=== PATIENT | female | born 1965 | race Caucasian/White ===

== ENCOUNTER 2017-08-01 11:40 | Day surgery (SDC) | payer OTHER ==
[~2017-08-01] VITALS: Ht 175.3 cm; Wt 100.2 kg
[~2017-08-01 11:40] MED LIST: BUPR150ER PO; CALCA400CH; CALCITRATE200 MG; LARIN FE 1-201 EACH PO; Multiple Vitam1 EACH PO; SERT25 PO
== END 2017-08-01 14:05 | disposition home or self-care (01) ==
LOC: ORSCSDS 11:40
PROVIDERS: Surgery
PROC: 0DJD8ZZ Inspection of Lower Intestinal Tract, Via Natural or Artificial Opening Endoscopic (ICD-10-PCS; principal; 2017-08-01 13:30)
DX: Z12.11 Encounter for screening for malignant neoplasm of colon (principal); E78.5 Hyperlipidemia, unspecified; F32.9 Major depressive disorder, single episode, unspecified; Z79.899 Other long term (current) drug therapy
CPT/HCPCS: J0330; J1980; J2405; J7120

== ENCOUNTER → 2020-02-26 | Outpatient (CLI) | payer OTHER ==
[~2020-02-26] MED LIST changes: +Calcium Acetat667 MG; +Multivitamin1 EAC1 PO
[2020-02-28 16:11] LABS: HPV 16 Negative (Negative); HPV 18 Negative (Negative); HPV OTHER HR TYPES Negative (Negative)
== END ==
LOC: LAB 18:55 → LAB SHORT 18:55
PROVIDERS: Obstetrics & Gynecology
DX: Z01.419 Encounter for gynecological examination (general) (routine) without abnormal findings (principal)
CPT/HCPCS: 87624; G0123

== ENCOUNTER 2021-08-26 08:43 | Day surgery (SDC) | payer OTHER | END 2021-08-27 23:09 | disposition home or self-care (01) | LOC: MOI MAM 08:43 | DX: D24.2 Benign neoplasm of left breast (principal); N60.32 Fibrosclerosis of left breast | CPT/HCPCS: 19081; 88305; A4648 ==

== ENCOUNTER 2022-10-04 08:22 | Day surgery (SDC) | payer OTHER | END 2022-10-11 22:54 | disposition home or self-care (01) | LOC: MOI MAM 08:22 | DX: R92.1 Mammographic calcification found on diagnostic imaging of breast (principal); D24.2 Benign neoplasm of left breast ==

== ENCOUNTER 2022-10-05 09:39 | Day surgery (SDC) | payer OTHER ==
[~2022-10-05] VITALS: Ht 177.8 cm; Wt 113.6 kg
[2022-10-05] VITALS (10 sets, daily range): BP systolic 132–151; BP diastolic 68–93
[~2022-10-05 09:39] MED LIST changes: +IBUP200 PO
[2022-10-05] MEDS ORDERED: OMEP20ER PO (10:51)
--- NOTE | 2022-10-05 11:11 | NUR ---
Ambulatory in Day Surgery History, Chart, Medications and Allergies reviewed before start of procedure. Pre-Op teaching done. Pt verbalizes understanding. Patient States Post-Procedure ride home has been arranged.
--- NOTE | 2022-10-05 13:29 | NUR ---
REPORT RECIEVED. PT SITTING UP IN BED TOLERING PO FLUIDS. REPORTS PAIN 2/10 AND A HEADACE. VSS ON ROOM AIR. TOLERING PO FLUDIS
--- NOTE | 2022-10-05 13:54 | NUR ---
PT DECLINES NARCOTIC PAIN MEDICATION. DR LUCIO CONSULTED FOR ALTERNATIVE PAIN MED AT THIS TIME, AT BED SIDE. FAMILY AT BEDSIDE.
--- NOTE | 2022-10-05 14:26 | NUR ---
Patient up to Ambulate independently. Gait steady. Dressing to procedure site clean, dry, intact with no visible drainage, swelling, erythema or bruising noted. BREAST BINDER IN PLACE. Discharge instructions reviewed with patient AND MOM . Patient verbalizes understanding. Copy given to patient to take home. PT TOLERTING PO FLUIDS AND FOOD. STATES SHES AT A TOLERABLE PAIN LEVEL. SCRIPT PROVIDED Discharged via wheelchair to private car for ride home.
== END 2022-10-05 14:30 | disposition home or self-care (01) ==
LOC: ORSCMMR 09:39 → ORD 11:00 → ORSCMMR 14:30
PROVIDERS: Surgery
PROC: 0HBU0ZX Excision of Left Breast, Open Approach, Diagnostic (ICD-10-PCS; principal; 2022-10-05 11:00)
DX: D05.12 Intraductal carcinoma in situ of left breast (principal); R92.1 Mammographic calcification found on diagnostic imaging of breast; K21.9 Gastro-esophageal reflux disease without esophagitis; E66.9 Obesity, unspecified; Z68.35 Body mass index [BMI] 35.0-35.9, adult
CPT/HCPCS: 88307; 88360; A9270; J0690; J1100; J2250; J2371; J2405; J2704; J2765; J3010; J7120

== ENCOUNTER 2022-10-22 06:50 | Day surgery (SDC) | payer OTHER ==
[2022-10-22] VITALS (18 sets, daily range): BP systolic 134–164; BP diastolic 72–97
[~2022-10-22] VITALS: Ht 177.8 cm; Wt 113.4 kg
[~2022-10-22 06:50] MED LIST changes: +Calcium Acetat667 MG PO; +Cyclobenzaprine10 MG PO; +OMEP20ER PO
--- NOTE | 2022-10-22 11:03 | NUR ---
WASH CLOTH OVER EYES BRIEFLY DUE TO PT THOUGHT IT WAS BRIGHT IN ROOM . LIGHTS OVER GURNEY WERE OFF
--- NOTE | 2022-10-22 11:55 | NUR ---
1130 REPORT RECEIVED FROM JAKE HARDEN RN. VSS. PT ABLE TO REPOSITION SELF IN BED. PT REQUESTING PO FOOD AND FLUIDS AND TOLERATING THEM WELL. PT HAS 2 DRESSINGS TO L BREAST AND AXILLARY THAT ARE C/D/I WITHOUT DRAINAGE, REDNESS, OR SWELLING. PT REPORTS 3/10 ACHING PAIN TO R BREAST BUT DOES NOT WANT TO BE MEDICATED FOR THIS. PT DENIES NAUSEA OR OTHER DISCOMFORTS. FRIEND AT BEDSIDE.
--- NOTE | 2022-10-22 12:33 | NUR ---
Discharge instructions reviewed with patient. Patient verbalizes understanding. Copy given to patient to take home. PT REPORTS THAT SHE CAN NOT TOLERATE NORCO WHICH IS THE MEDICATION THAT WAS PRESCRIBED POST-OP. DR LUCIO NOTIFIED AND INSTRUCTED TO GET PRESCRIPTION FOR TRAMADOL FROM DR FLOR. SHE WAS GIVEN A PRESCRIPTION FOR TRAMADOL 2 WEEKS AGO FOR HER PREVIOUS SURGERY AND IT WORKED WELL. DR FLOR WROTE NEW PRESCRIPTION FOR TRAMADOL.
--- NOTE | 2022-10-22 13:20 | NUR ---
Patient up to Ambulate independently. Gait steady. VSS AND CONSISTENT WITH PT BASELINE. Dressing to procedure site clean, dry, intact with no visible drainage, swelling, erythema or bruising noted. Patient States Post-Procedure ride home has been arranged. Discharged via wheelchair to private car for ride home. PT BELONGINGS RETURNED TO PT.
== END 2022-10-22 13:23 | disposition home or self-care (01) ==
LOC: ORSCMMR 06:50 → NM 06:50
PROVIDERS: Surgery
PROC: 0HBU0ZZ Excision of Left Breast, Open Approach (ICD-10-PCS; principal; 2022-10-22 09:00)
PROC: 07B60ZX Excision of Left Axillary Lymphatic, Open Approach, Diagnostic (ICD-10-PCS; principal; 2022-10-22 09:00)
DX: C50.112 Malignant neoplasm of central portion of left female breast (principal); D36.0 Benign neoplasm of lymph nodes; Z17.0 Estrogen receptor positive status [ER+]; F32.A Depression, unspecified; Z79.899 Other long term (current) drug therapy
CPT/HCPCS: 38792; 88307; 88341; 88342; A9520; J0690; J1100; J2250; J2405; J2704; J3010; J7120; Q9968

== ENCOUNTER → 2023-03-25 | Outpatient (CLI) | payer OTHER ==
[~2023-03-25] MED LIST changes: +Acetaminophen650 M1 PO; -BUPR150ER PO; +BUPROPION XL150 M1 PO; +CALCIUM 600-VI1 EAC6 PO; +CLIN150 PO; +Lopressor 25 mg25 MG PO; +MAGNESIUM OXID500 MG PO; +POTCHL20ER PO
[2023-03-25 14:13] LABS: BASOPHILS ABSOLUTE AUTO 0.06 K/mm3 (0.00-0.23); BASOPHILS PERCENT AUTO 1 % (0-2); EOSINOPHILS PERCENT AUTO 0 % (0-6); Hematocrit 32.5 % (33.0-51.0); Hemoglobin 10.8 g/dL (11.5-16.0); IMMATURE GRAN ABSOLUTE AUTO 0.16 K/mm3 (0.00-0.10); IMMATURE GRAN PERCENT AUTO 2 % (0-1); LYMPHOCYTES ABSOLUTE AUTO 3.25 K/mm3 (0.84-5.20); LYMPHOCYTES PERCENT AUTO 30 % (21-46); MONOCYTES ABSOLUTE AUTO 1.26 K/mm3 (0.16-1.47); MONOCYTES PERCENT AUTO 12 % (4-13); Mean Corpuscular HGB 32.9 pg (26.0-34.0); Mean Corpuscular HGB Conc 33.2 g/dL (31.5-36.5); Mean Corpuscular Volume 99 fL (80-100); NEUTROPHILS ABSOLUTE AUTO 6.27 K/mm3 (1.96-9.15); NEUTROPHILS PERCENT AUTO 57 % (41-73); Platelet Count 242 K/mm3 (150-400); RDW Coefficient Variation 16.2 % (11.7-14.2); RDW Standard Deviation 58.4 fL (35.1-46.3); Red Blood Cell Count 3.28 M/mm3 (3.80-5.20)
[2023-03-25 14:15] LABS: Albumin, Blood 3.5 g/dL (3.4-5.0); Albumin/Globulin Ratio 1.2 (0.8-1.8); Bilirubin, Total 0.4 mg/dL (0.1-1.0); Bun/Creatinine Ratio 7.5 (12.0-20.0); Calcium, Blood 6.7 mg/dL (8.5-10.1); Creatinine, Blood 0.8 mg/dL (0.40-1.00); Globulin, Blood 2.8 g/dL (2.2-4.0); Potassium, Blood 3.6 mmol/L (3.5-5.5); Total Protein, Blood 6.3 g/dL (6.4-8.2)
== END ==
LOC: LAB 12:00 → LAB SHORT 12:00
PROVIDERS: Family Medicine
DX: Z51.11 Encounter for antineoplastic chemotherapy (principal); L03.019 Cellulitis of unspecified finger
CPT/HCPCS: 80053; 83690; 85025; 85651; 87040; 87070; 87075; 87077; 87147; 87186; 87205

== ENCOUNTER 2023-03-27 13:09 | Inpatient (IN) | payer OTHER ==
[~2023-03-27] VITALS: Ht 177.8 cm; Wt 102.1 kg
[~2023-03-27 13:09] MED LIST changes: -Acetaminophen650 M1 PO; -CALCIUM 600-VI1 EAC6 PO; -CLIN150 PO; -Lopressor 25 mg25 MG PO; -MAGNESIUM OXID500 MG PO; -POTCHL20ER PO
[2023-03-27] MEDS ORDERED: LORazepam 2 MG/ML 1ML Injection IV PRN (14:00)
[2023-03-27] MEDS ORDERED: Lactated Ringer's 1,000 ML IV ONE (14:00)
[2023-03-27 14:13] LABS: Albumin, Blood 3.1 g/dL (3.4-5.0); Albumin/Globulin Ratio 1.1 (0.8-1.8); Bilirubin, Total 0.4 mg/dL (0.1-1.0); Calcium, Blood 6.1 mg/dL (8.5-10.1); Creatinine, Blood 0.72 mg/dL (0.40-1.00); Globulin, Blood 2.7 g/dL (2.2-4.0); Potassium, Blood 3.1 mmol/L (3.5-5.5); Total Protein, Blood 5.8 g/dL (6.4-8.2)
[2023-03-27 14:16] LABS: BASOPHILS ABSOLUTE AUTO 0.03 K/mm3 (0.00-0.23); BASOPHILS PERCENT AUTO 0 % (0-2); EOSINOPHILS PERCENT AUTO 0 % (0-6); Hematocrit 31.3 % (33.0-51.0); Hemoglobin 10.5 g/dL (11.5-16.0); IMMATURE GRAN PERCENT AUTO 1 % (0-1); LYMPHOCYTES ABSOLUTE AUTO 1.77 K/mm3 (0.84-5.20); LYMPHOCYTES PERCENT AUTO 16 % (21-46); MONOCYTES ABSOLUTE AUTO 0.71 K/mm3 (0.16-1.47); MONOCYTES PERCENT AUTO 6 % (4-13); Mean Corpuscular HGB 33.4 pg (26.0-34.0); Mean Corpuscular HGB Conc 33.5 g/dL (31.5-36.5); Mean Corpuscular Volume 100 fL (80-100); Mean Platelet Volume 9.8 fL (9.1-12.4); NEUTROPHILS ABSOLUTE AUTO 8.49 K/mm3 (1.96-9.15); NEUTROPHILS PERCENT AUTO 77 % (41-73); Platelet Count 209 K/mm3 (150-400); RDW Coefficient Variation 16.6 % (11.7-14.2); RDW Standard Deviation 60.3 fL (35.1-46.3); Red Blood Cell Count 3.14 M/mm3 (3.80-5.20)
[2023-03-27] MEDS ORDERED: Calcium Gluconate 10% 2,000 MG in NS 100 ML IV ONE ×2 (14:20→20:00)
[2023-03-27 14:34] LABS: Base Excess Venous 2.6 mmol/L; Bicarbonate Venous 26.4 mmol/L (24.0-30.0); PCO2 Venous 41.8 mmHg (38-42); pH Blood Venous 7.42 (7.34-7.37)
[2023-03-27 14:41] LABS: Magnesium, Blood 0.6 mg/dL (1.6-2.4); Phosphorus, Blood 3.9 mg/dL (2.5-4.9)
[2023-03-27] MEDS ORDERED: Magnesium Oxide 400 MG Tab PO ONE (14:55)
[2023-03-27] MEDS ORDERED: Potassium Chloride 20 MEQ/15 ML UDC PO ONE (14:55)
[2023-03-27] MEDS ORDERED: Magnesium Sulf 2 GM/Water 50ML 50 ML IV ONE (16:20)
[2023-03-27] MEDS ORDERED: FLU VACC QS2023-24(6MOS UP)/PF 60 MCG/0.5 ML SYRINGE IM PRN (16:50)
[2023-03-27 17:10] LABS: Anion Gap 5 mmol/L (6-16); Blood Urea Nitrogen 6 mg/dL (8-24); CO2, Blood 31 mmol/L (21-32); Calcium, Blood 6.8 mg/dL (8.5-10.1); Chloride, Blood 101 mmol/L (98-108); Creatinine, Blood 0.67 mg/dL (0.40-1.00); Glomerular Filtration Rate 101 (60-); Glucose, Blood 102 mg/dL (70-99); Potassium, Blood 3.1 mmol/L (3.5-5.5); Sodium, Blood 137 mmol/L (136-145)
[2023-03-27] MEDS ORDERED: Potassium Chl 20MEQ/Water100ML 100 ML IV ONE (17:45)
[2023-03-27 19:24] VITALS: BP 133/82
[2023-03-27] MEDS ORDERED: POTCHL20ER PO (19:45)
[2023-03-27] MEDS ORDERED: NS 1,000 ML BAG IR SCH (19:55)
[2023-03-27] MEDS ORDERED: Clindamycin HCl 150 MG Cap PO SCH (21:00)
[2023-03-27] MEDS ORDERED: Potassium Chloride 40 MEQ in NS 250 ML IV ONE (21:00)
[2023-03-28] MEDS ORDERED: NS 250 ML IV PRN (00:05)
[2023-03-28] MEDS ORDERED: Ondansetron HCl 2 MG / ML 2ML Vial IV PRN (03:05)
[2023-03-28 03:59] VITALS: BP 113/68
[2023-03-28 05:46] LABS: BASOPHILS ABSOLUTE AUTO 0.03 K/mm3 (0.00-0.23); BASOPHILS PERCENT AUTO 1 % (0-2); EOSINOPHILS PERCENT AUTO 0 % (0-6); Hematocrit 28.2 % (33.0-51.0); Hemoglobin 9.4 g/dL (11.5-16.0); IMMATURE GRAN ABSOLUTE AUTO 0.04 K/mm3 (0.00-0.10); IMMATURE GRAN PERCENT AUTO 1 % (0-1); LYMPHOCYTES ABSOLUTE AUTO 1.69 K/mm3 (0.84-5.20); LYMPHOCYTES PERCENT AUTO 32 % (21-46); MONOCYTES ABSOLUTE AUTO 0.56 K/mm3 (0.16-1.47); MONOCYTES PERCENT AUTO 11 % (4-13); Mean Corpuscular HGB 33.3 pg (26.0-34.0); Mean Corpuscular HGB Conc 33.3 g/dL (31.5-36.5); Mean Corpuscular Volume 100 fL (80-100); Mean Platelet Volume 9.2 fL (9.1-12.4); NEUTROPHILS ABSOLUTE AUTO 2.99 K/mm3 (1.96-9.15); NEUTROPHILS PERCENT AUTO 56 % (41-73); Platelet Count 174 K/mm3 (150-400); RDW Coefficient Variation 16.6 % (11.7-14.2); RDW Standard Deviation 61.3 fL (35.1-46.3); Red Blood Cell Count 2.82 M/mm3 (3.80-5.20); White Blood Cell Count 5.31 K/mm3 (4.00-11.30)
[2023-03-28 06:20] LABS: Albumin, Blood 2.8 g/dL (3.4-5.0); Anion Gap 4 mmol/L (6-16); Blood Urea Nitrogen 5 mg/dL (8-24); CO2, Blood 32 mmol/L (21-32); Calcium, Blood 6.8 mg/dL (8.5-10.1); Chloride, Blood 105 mmol/L (98-108); Creatinine, Blood 0.71 mg/dL (0.40-1.00); Glomerular Filtration Rate 98 (60-); Glucose, Blood 96 mg/dL (70-99); Magnesium, Blood 1.3 mg/dL (1.6-2.4); Phosphorus, Blood 4.5 mg/dL (2.5-4.9); Potassium, Blood 3.3 mmol/L (3.5-5.5); Sodium, Blood 141 mmol/L (136-145)
[2023-03-28 07:38] VITALS: BP 121/64
[2023-03-28] MEDS ORDERED: Magnesium Sulf 2 GM/Water 50ML 50 ML IV ONE (08:50)
[2023-03-28] MEDS ORDERED: Calcium Gluconate 10% 2,000 MG in NS 100 ML IV ONE ×2 (08:50→23:25)
[2023-03-28] MEDS ORDERED: Enoxaparin 40 MG/0.4 ML SYR SC SCH (09:00)
[2023-03-28] MEDS ORDERED: Potassium Chloride 20 MEQ TabCR PO ONE (09:00)
[2023-03-28 14:47] LABS: Albumin, Blood 2.8 g/dL (3.4-5.0); Albumin/Globulin Ratio 1.1 (0.8-1.8); Bilirubin, Total 0.4 mg/dL (0.1-1.0); Bun/Creatinine Ratio 7.5 (12.0-20.0); Calcium, Blood 7.5 mg/dL (8.5-10.1); Creatinine, Blood 0.67 mg/dL (0.40-1.00); Globulin, Blood 2.6 g/dL (2.2-4.0); Magnesium, Blood 1.8 mg/dL (1.6-2.4); Potassium, Blood 3.7 mmol/L (3.5-5.5); Total Protein, Blood 5.4 g/dL (6.4-8.2)
[2023-03-28 14:55] VITALS: BP 113/76
[2023-03-28] MEDS ORDERED: Omeprazole 20 MG CapCR PO SCH (16:30)
[2023-03-28 20:24] VITALS: BP 119/67
[2023-03-29 04:19] VITALS: BP 111/60
[2023-03-29 04:56] LABS: BASOPHILS ABSOLUTE AUTO 0.02 K/mm3 (0.00-0.23); BASOPHILS PERCENT AUTO 0 % (0-2); EOSINOPHILS PERCENT AUTO 0 % (0-6); Hematocrit 27.5 % (33.0-51.0); Hemoglobin 8.9 g/dL (11.5-16.0); IMMATURE GRAN ABSOLUTE AUTO 0.03 K/mm3 (0.00-0.10); IMMATURE GRAN PERCENT AUTO 1 % (0-1); LYMPHOCYTES ABSOLUTE AUTO 1.88 K/mm3 (0.84-5.20); LYMPHOCYTES PERCENT AUTO 35 % (21-46); MONOCYTES ABSOLUTE AUTO 0.47 K/mm3 (0.16-1.47); MONOCYTES PERCENT AUTO 9 % (4-13); Mean Corpuscular HGB 33.2 pg (26.0-34.0); Mean Corpuscular HGB Conc 32.4 g/dL (31.5-36.5); Mean Corpuscular Volume 103 fL (80-100); Mean Platelet Volume 9.1 fL (9.1-12.4); NEUTROPHILS ABSOLUTE AUTO 2.97 K/mm3 (1.96-9.15); NEUTROPHILS PERCENT AUTO 55 % (41-73); Platelet Count 158 K/mm3 (150-400); RDW Coefficient Variation 16.3 % (11.7-14.2); RDW Standard Deviation 61.3 fL (35.1-46.3); Red Blood Cell Count 2.68 M/mm3 (3.80-5.20); White Blood Cell Count 5.37 K/mm3 (4.00-11.30)
[2023-03-29 05:27] LABS: Albumin, Blood 2.7 g/dL (3.4-5.0); Albumin/Globulin Ratio 1.1 (0.8-1.8); Bilirubin, Total 0.3 mg/dL (0.1-1.0); Bun/Creatinine Ratio 8.7 (12.0-20.0); Calcium, Blood 7.5 mg/dL (8.5-10.1); Creatinine, Blood 0.69 mg/dL (0.40-1.00); Globulin, Blood 2.5 g/dL (2.2-4.0); Magnesium, Blood 1.4 mg/dL (1.6-2.4); Potassium, Blood 3.4 mmol/L (3.5-5.5); Total Protein, Blood 5.2 g/dL (6.4-8.2)
[2023-03-29 07:11] VITALS: BP 116/79
[2023-03-29] MEDS ORDERED: Magnesium Sulf 2 GM/Water 50ML 50 ML IV STA (08:10)
[2023-03-29] MEDS ORDERED: Calcium Gluconate 10% 2,000 MG in NS 100 ML IV ONE ×2 (08:15→18:00)
[2023-03-29] MEDS ORDERED: Potassium Chloride 20 MEQ TabCR PO ONE ×2 (09:00→11:00)
[2023-03-29 13:25] LABS: Calcium, Blood 7.8 mg/dL (8.5-10.1); Creatinine, Blood 0.75 mg/dL (0.40-1.00); Magnesium, Blood 1.7 mg/dL (1.6-2.4); Potassium, Blood 3.9 mmol/L (3.5-5.5)
[2023-03-29 15:19] VITALS: BP 130/70
[2023-03-29] MEDS ORDERED: Mag Sulfate 1 GM/D5% 100ML 100 ML IV STA (17:18)
[2023-03-29 19:51] VITALS: BP 130/81
[2023-03-29] MEDS ORDERED: Lactobacil 2-S.Thermo-Bifido 1 1 Cap PO SCH (21:00)
[2023-03-30 04:25] VITALS: BP 133/68
[2023-03-30 05:51] LABS: BASOPHILS ABSOLUTE AUTO 0.02 K/mm3 (0.00-0.23); BASOPHILS PERCENT AUTO 0 % (0-2); EOSINOPHILS PERCENT AUTO 0 % (0-6); Hemoglobin 8.5 g/dL (11.5-16.0); IMMATURE GRAN ABSOLUTE AUTO 0.02 K/mm3 (0.00-0.10); IMMATURE GRAN PERCENT AUTO 0 % (0-1); LYMPHOCYTES ABSOLUTE AUTO 1.49 K/mm3 (0.84-5.20); LYMPHOCYTES PERCENT AUTO 27 % (21-46); MONOCYTES ABSOLUTE AUTO 0.49 K/mm3 (0.16-1.47); MONOCYTES PERCENT AUTO 9 % (4-13); Mean Corpuscular HGB 33.7 pg (26.0-34.0); Mean Corpuscular HGB Conc 32.7 g/dL (31.5-36.5); Mean Corpuscular Volume 103 fL (80-100); Mean Platelet Volume 9.2 fL (9.1-12.4); NEUTROPHILS ABSOLUTE AUTO 3.42 K/mm3 (1.96-9.15); NEUTROPHILS PERCENT AUTO 63 % (41-73); Platelet Count 154 K/mm3 (150-400); RDW Coefficient Variation 16.3 % (11.7-14.2); RDW Standard Deviation 61.9 fL (35.1-46.3); Red Blood Cell Count 2.52 M/mm3 (3.80-5.20); White Blood Cell Count 5.44 K/mm3 (4.00-11.30)
[2023-03-30 06:12] LABS: Albumin, Blood 2.5 g/dL (3.4-5.0); Bilirubin, Total 0.3 mg/dL (0.1-1.0); Bun/Creatinine Ratio 15.4 (12.0-20.0); Calcium, Blood 7.6 mg/dL (8.5-10.1); Creatinine, Blood 0.65 mg/dL (0.40-1.00); Globulin, Blood 2.5 g/dL (2.2-4.0); Magnesium, Blood 1.4 mg/dL (1.6-2.4); Potassium, Blood 3.5 mmol/L (3.5-5.5)
[2023-03-30 07:27] VITALS: BP 116/78
[2023-03-30] MEDS ORDERED: Calcium Gluconate 10% 2,000 MG in NS 100 ML IV ONE (08:25)
[2023-03-30] MEDS ORDERED: Magnesium Sulf 2 GM/Water 50ML 50 ML IV ONE ×2 (08:25→17:15)
[2023-03-30 10:55] LABS: Adenovirus F 40/41 Not Detected (NOT DETECT); Astrovirus Not Detected (NOT DETECT); Campylobacter Sp Not Detected (NOT DETECT); Cryptosporidium Not Detected (NOT DETECT); Cyclospora Cayetanensis Not Detected (NOT DETECT); E. Coli O157 Not Detected (NOT DETECT); Entamoeba Histolytica Not Detected (NOT DETECT); Enteroaggregative E. coli-EAEC Not Detected (NOT DETECT); Enteropathogenic E. coli-EPEC Not Detected (NOT DETECT); Enterotoxigenic E. coli-ETEC Not Detected (NOT DETECT); Giardia Lamblia Not Detected (NOT DETECT); Norovirus GI/GII Not Detected (NOT DETECT); Plesiomonas Shigelloides Not Detected (NOT DETECT); Rotavirus A Not Detected (NOT DETECT); Salmonella Sp Not Detected (NOT DETECT); Sapovirus Not Detected (NOT DETECT); Shiga Toxin-prod E. coli-STEC Not Detected (NOT DETECT); Shigella/Enteroin E. coli-EIEC Not Detected (NOT DETECT); Vibrio Cholerae Not Detected (NOT DETECT); Vibrio Sp Not Detected (NOT DETECT); Yersinia Enterocolitica Not Detected (NOT DETECT)
[2023-03-30 15:56] VITALS: BP 135/80
[2023-03-30 16:14] LABS: Bun/Creatinine Ratio 12.3 (12.0-20.0); Calcium, Blood 8.3 mg/dL (8.5-10.1); Creatinine, Blood 0.73 mg/dL (0.40-1.00); Magnesium, Blood 1.4 mg/dL (1.6-2.4); Potassium, Blood 3.4 mmol/L (3.5-5.5)
[2023-03-30 20:09] VITALS: BP 123/72
[2023-03-31 04:59] VITALS: BP 142/90
[2023-03-31 05:16] LABS: BASOPHILS ABSOLUTE AUTO 0.03 K/mm3 (0.00-0.23); BASOPHILS PERCENT AUTO 1 % (0-2); EOSINOPHILS PERCENT AUTO 0 % (0-6); Hematocrit 27.5 % (33.0-51.0); Hemoglobin 9.2 g/dL (11.5-16.0); IMMATURE GRAN ABSOLUTE AUTO 0.03 K/mm3 (0.00-0.10); IMMATURE GRAN PERCENT AUTO 1 % (0-1); LYMPHOCYTES ABSOLUTE AUTO 1.75 K/mm3 (0.84-5.20); LYMPHOCYTES PERCENT AUTO 28 % (21-46); MONOCYTES ABSOLUTE AUTO 0.52 K/mm3 (0.16-1.47); MONOCYTES PERCENT AUTO 8 % (4-13); Mean Corpuscular HGB 34.5 pg (26.0-34.0); Mean Corpuscular HGB Conc 33.5 g/dL (31.5-36.5); Mean Corpuscular Volume 103 fL (80-100); Mean Platelet Volume 9.2 fL (9.1-12.4); NEUTROPHILS ABSOLUTE AUTO 3.84 K/mm3 (1.96-9.15); NEUTROPHILS PERCENT AUTO 62 % (41-73); Platelet Count 168 K/mm3 (150-400); RDW Coefficient Variation 16.5 % (11.7-14.2); RDW Standard Deviation 61.1 fL (35.1-46.3); Red Blood Cell Count 2.67 M/mm3 (3.80-5.20); White Blood Cell Count 6.17 K/mm3 (4.00-11.30)
[2023-03-31 05:35] LABS: Bun/Creatinine Ratio 13.2 (12.0-20.0); Calcium, Blood 7.8 mg/dL (8.5-10.1); Creatinine, Blood 0.76 mg/dL (0.40-1.00); Magnesium, Blood 1.6 mg/dL (1.6-2.4); Potassium, Blood 3.4 mmol/L (3.5-5.5)
[2023-03-31 07:11] VITALS: BP 114/71
[2023-03-31] MEDS ORDERED: Acetaminophen 325 MG TABLET PO PRN (08:35)
[2023-03-31] MEDS ORDERED: Metoprolol Tartrate 25 MG Tab PO SCH (10:00)
[2023-03-31] MEDS ORDERED: Magnesium Oxide 400 MG Tab PO SCH (11:00)
[2023-03-31] MEDS ORDERED: Calcium/Vit D 600 mg-400 Unit Tab PO SCH (11:00)
[2023-03-31 16:30] VITALS: BP 109/62
[2023-03-31] MEDS ORDERED: Acetaminophen650 M1 PO (19:34)
[2023-03-31] MEDS ORDERED: CLIN150 PO (19:36)
[2023-03-31] MEDS ORDERED: MAGNESIUM OXID500 MG PO (19:36)
[2023-03-31] MEDS ORDERED: CALCIUM 600-VI1 EAC6 PO (19:36)
[2023-03-31 20:17] VITALS: BP 117/76
[2023-04-01 02:41] VITALS: BP 101/55
[2023-04-01 05:17] LABS: BASOPHILS ABSOLUTE AUTO 0.02 K/mm3 (0.00-0.23); BASOPHILS PERCENT AUTO 0 % (0-2); EOSINOPHILS PERCENT AUTO 0 % (0-6); Hematocrit 26.1 % (33.0-51.0); Hemoglobin 8.4 g/dL (11.5-16.0); IMMATURE GRAN ABSOLUTE AUTO 0.02 K/mm3 (0.00-0.10); IMMATURE GRAN PERCENT AUTO 0 % (0-1); LYMPHOCYTES ABSOLUTE AUTO 1.87 K/mm3 (0.84-5.20); LYMPHOCYTES PERCENT AUTO 33 % (21-46); MONOCYTES ABSOLUTE AUTO 0.65 K/mm3 (0.16-1.47); MONOCYTES PERCENT AUTO 11 % (4-13); Mean Corpuscular HGB 33.2 pg (26.0-34.0); Mean Corpuscular HGB Conc 32.2 g/dL (31.5-36.5); Mean Corpuscular Volume 103 fL (80-100); Mean Platelet Volume 9.1 fL (9.1-12.4); NEUTROPHILS ABSOLUTE AUTO 3.13 K/mm3 (1.96-9.15); NEUTROPHILS PERCENT AUTO 55 % (41-73); Platelet Count 149 K/mm3 (150-400); RDW Coefficient Variation 16.5 % (11.7-14.2); RDW Standard Deviation 62.3 fL (35.1-46.3); Red Blood Cell Count 2.53 M/mm3 (3.80-5.20); White Blood Cell Count 5.69 K/mm3 (4.00-11.30)
[2023-04-01 05:49] LABS: Bun/Creatinine Ratio 13.1 (12.0-20.0); Calcium, Blood 7.5 mg/dL (8.5-10.1); Creatinine, Blood 0.69 mg/dL (0.40-1.00); Magnesium, Blood 1.1 mg/dL (1.6-2.4); Potassium, Blood 3.1 mmol/L (3.5-5.5)
[2023-04-01] MEDS ORDERED: Magnesium Sulf 2 GM/Water 50ML 50 ML IV ONE (06:40)
[2023-04-01 07:28] VITALS: BP 108/75
[2023-04-01] MEDS ORDERED: Potassium Chloride 20 MEQ TabCR PO ONE (09:00)
[2023-04-01] MEDS ORDERED: Magnesium Oxide 400 MG Tab PO SCH ×2 (10:00→11:30)
[2023-04-01] MEDS ORDERED: Lopressor 25 mg25 MG PO (15:50)
== END 2023-04-01 17:15 | disposition home or self-care (01) | DRG 641 ==
LOC: ER 13:09 → MEDS 13:10 → ENPENDDIS 03-31 18:20 → MEDS 04-01 17:15
PROVIDERS: Emergency Medicine; Internal Medicine; Nurse Practitioner Acute Care; ADMIT Family Medicine
DX: E83.51 Hypocalcemia (principal); I47.10 Supraventricular tachycardia, unspecified; E83.42 Hypomagnesemia; E87.6 Hypokalemia; C50.912 Malignant neoplasm of unspecified site of left female breast; L03.019 Cellulitis of unspecified finger; T45.1X5A Adverse effect of antineoplastic and immunosuppressive drugs, initial encounter
CPT/HCPCS: 36415; 80048; 80053; 80069; 82306; 82330; 82550; 82803; 83735; 83880; 84100; 84443; 84484; 85025; 87507; 93005; 93010; 93306; 93356; 96361; 96365; 96366; 96367; 96368; 96372; 96375; 96376; 99285-25; A9270; G0378; J0612; J1642; J1650; J2060; J3475; J3480; J7050; J7120

== ENCOUNTER → 2024-03-05 | Outpatient (CLI) | payer OTHER ==
[~2024-03-05] MED LIST changes: +Acetaminophen650 M1 PO; +CALCIUM 600-VI1 EAC6 PO; +CLIN150 PO; +Lopressor 25 mg25 MG PO; +MAGNESIUM OXID500 MG PO; +POTCHL20ER PO
[2024-03-05 20:17] LABS: Bacterial Vaginosis PCR Negative (NEGATIVE); Candida Group, PCR NOT DETECTED (NOT DETECT); Candida glabrata-krusei, PCR NOT DETECTED (NOT DETECT)
== END | disposition home or self-care (01) ==
LOC: LAB 17:26 → LAB SHORT 17:26
PROVIDERS: Family Medicine
DX: N89.8 Other specified noninflammatory disorders of vagina (principal)
CPT/HCPCS: 81515